=== PATIENT | female | born 1940 | race Caucasian/White ===

== ENCOUNTER 2021-06-15 16:14 | Inpatient (IN) | payer OTHER ==
[~2021-06-15] VITALS: Ht 152.4 cm; Wt 59.0 kg
[~2021-06-15 16:14] MED LIST: AVALIDE 300-12.1 TAB; PRILOSEC10 MG
[2021-06-15] MEDS ORDERED: MEMANTINE HCL10 GM (16:26)
[2021-06-15] MEDS ORDERED: ROSUVASTATIN CA10 MG (16:26)
[2021-06-15] MEDS ORDERED: AVAPRO300 MG (16:27)
[2021-06-15] MEDS ORDERED: SERTRALINE HCL50 MG (16:27)
[2021-06-15] MEDS ORDERED: INDERAL XL120 MG (16:27)
[2021-06-15] MEDS ORDERED: KEPPRA XR500 MG (16:27)
[2021-06-15] MEDS ORDERED: DONEPEZIL HCL O10 MG (16:27)
[2021-06-15] MEDS ORDERED: PLAVIX75 MG (16:28)
[2021-06-15] MEDS ORDERED: ZETIA10 MG (16:28)
[2021-06-15] MEDS ORDERED: OMEPRAZOLE MAGN20 MG (16:28)
[2021-06-15] MEDS ORDERED: ADULT LOW DOSE81 M1 (16:28)
--- NOTE | 2021-06-15 16:38 | NUR ---
SE RECIBE PTE ALERTA Y ORIENTADA X2 [place] DE FAMILIAR. LA CUAL REFIERE VENIR [place] DE [facility]IST[facility] MEDICA A MEDICO DE CABECERA EL CUAL NO TIENE PRIVILEGIOS AQUI PARA REALIZARSE CT DE PECHO POR FATIGA LA CUAL PTE PRESENTA DESDE EL LUNES SE REALIZA EKG A PTE, SE MIDEN S/V A PTE. PTE AL MOMENTO SE OBSERVA SIN DISTRESS REPIRATORIO Y [place] ORACIONES COMPLETAS. PTE SE COLOCA EN ALEN DE ESPERA.
--- NOTE | 2021-06-15 18:32 | NUR ---
SE LE ORIENTA A PTE SOBRE TRATAMIENTO A SEGUIR, RICKY REFIERE ENTENDER. SE LE COLECTA MUESTRAS, SE CANALIZA Y SE ADMINISTRA IV FLUID JESSIKA ORDEN MEDICA UTILIZANDO MEDIDAS ASEPTICAS.
--- NOTE | 2021-06-15 23:30 | NUR ---
SE RECIBE FEMINA DE 80ANOS DE EDAD ORIENTADA EN LUGAR Y PERSONA CONECTADA A MONITOR CARDIACO CON RITMO SINUSAL NORMAL HR 67 LAT/MIN, OXIMETRIA DE PULSO AL MOMENTO CAPTURANDO 100% Y ASISTIDA RESPIRATORIAMENTE CON CANULA NASAL A 2 LTS. SE OBSERVA IVF'S PATENTE MELINA DE EDEMA Y ERITEMA EN AREA CUBITAL BRAZO RT RECIBIENDO .9NSS @ 120ML/HR. PACIENTE CON EDEMA EN EXTREMIDADES INFERIORES. PENDIENTE MUESTRA DE LAB EN LA MANANA Y CONSULTA CON DR. JOSE RODARTE. SE MANTIENE BAJO OBSERVACION POR CAMBIOS.
--- NOTE | 2021-06-16 07:58 | NUR ---
SE RECIBE PTE FEMINA DE 80 ANOS DE EDAD.PTE ALERTA,ESTABLE Y ORIENTADA,CONECTADA A MONITOR CARDIACO,CANULA NASAL Y CANALIZADA EN BRAZO DERECHO.SE MANTIENE BAJO OBSERVACION POR CAMBIOS SIGNIFICATIVOS.
[2021-06-21] MEDS ORDERED: AVAPRO300 MG PO (18:04)
[2021-06-21] MEDS ORDERED: ARICEPT10 MG PO (18:04)
[2021-06-21] MEDS ORDERED: PROPRANOLOL HC120 MG PO (18:04)
[2021-06-21] MEDS ORDERED: SIMVASTATIN20 MG PO (18:04)
[2021-06-21] MEDS ORDERED: KEPPRA500 MG PO (18:04)
[2021-06-21] MEDS ORDERED: INTEGRA PLUS C1 EACH PO (18:04)
[2021-06-21] MEDS ORDERED: PROTONIX40 MG PO (18:04)
[2021-06-21] MEDS ORDERED: CLOPIDOGREL BIS75 MG PO (18:04)
[2021-06-21] MEDS ORDERED: B-123000 MCG SL (18:04)
== END 2021-06-21 18:19 | disposition home or self-care (01) | DRG 641 ==
LOC: ER 16:14 → MEDI 06-16 12:35 → SEC-K 06-16 12:35 → MEDI 06-16 13:49
PROVIDERS: ADMIT Internal Medicine; ATTEND Internal Medicine
PROC: 3E0F73Z Introduction of Anti-inflammatory into Respiratory Tract, Via Natural or Artificial Opening (ICD-10-PCS; principal; 2021-06-17)
DX: E87.1 Hypo-osmolality and hyponatremia (principal); N39.0 Urinary tract infection, site not specified; E86.0 Dehydration; R06.02 Shortness of breath; R09.02 Hypoxemia; D64.89 Other specified anemias; I11.9 Hypertensive heart disease without heart failure; E78.5 Hyperlipidemia, unspecified; I25.10 Atherosclerotic heart disease of native coronary artery without angina pectoris; G30.8 Other Alzheimer's disease; F02.80 Dementia in other diseases classified elsewhere, unspecified severity, without behavioral disturbance, psychotic disturbance, mood disturbance, and anxiety